=== PATIENT | male | born 1945 | race Caucasian/White ===

== ENCOUNTER 2018-11-13 10:50 | Emergency (ER) | payer OTHER ==
--- NOTE | 2018-11-13 11:38 | EDPHY ---
HPI/HX/ROS/PE/MDM Narrative: CHIEF COMPLAINT: Nosebleed HPI: The patient is a 73-year-old male with a history of frequent nose bleeds, Coumadin use secondary to artificial heart valve and atrial fibrillation. The patient states that his INR was checked on Thursday and was found to be mildly elevated at 3.0. He has been dealing with a nose bleed on off for the last week. He was seen last at the emergency department at [place] yesterday morning in his right nostril was packed with gauze. He reports continued mild dripping from his right nostril as well as into the back of his throat despite this packing. He denies severe pain or fever. REVIEW OF SYSTEMS: Aside from elements discussed in the HPI, a comprehensive 10-point review of systems was reviewed and is negative. PMH: Includes artificial heart valve, atrial fibrillation, anticoagulant use. SOCIAL HISTORY: Lives in [place]. Denies alcohol or drug abuse. PHYSICAL EXAM: General:Patient is alert, in no acute distress. ENT: The right nostril is packed with large amount of gauze. There is no active bleeding from his nose or in his mouth. Neck: Normal inspection. Full range of motion. Respiratory:No respiratory distress. Breath sounds normal bilaterally. Cardiovascular: Regular rate and rhythm. Strong peripheral pulses. Normal cap refill. Abdomen:The abdomen is nontender to palpation. There are no peritoneal signs. There are normal bowel sounds. Back: Normal to inspection. No tenderness to palpation. Skin: Normal color. No rash. Warm and dry. Extremities: Normal appearance. Full range of motion. Neuro: Oriented x3. Normal motor function. Normal sensory function. ED Course: I removed the packed gauze in the right nostril with manual pressure. The patient blew his nose afterwards and there is apparently no active bleeding at this time. Patient was observed in the emergency department for approximately 1 hr with no recurrence of epistaxis. His INR remains 3.0. I had an extensive discussion with him regarding options for care including placing a rhino rocket now verses discharging home without further intervention. The patient has chosen the latter option. He is aware that epistaxis recurrence is certainly a possibility. I see no area that would benefit from cauterization at this time. - Data Points Laboratory Results: 11/13/18 12:05 PT 29.6 SEC H SEC (12.0-15.0) INR 3.00 H (0.83-1.16) APTT 33.5 SEC SEC (23.0-38.0) General Time Seen by Provider: 11/13/18 11:29 Initial Vital Signs: Initial Vital Signs Temperature (C) 36.6 C 11/13/18 10:56 Heart Rate 114 H 11/13/18 10:56 Respiratory Rate 18 11/13/18 10:56 Blood Pressure 158/90 H 11/13/18 10:56 O2 Sat (%) 86 L 11/13/18 10:56 O2 Delivery Mode Room Air Allergies/Adverse Reactions: Sulfa (Sulfonamide Antibiotics) Allergy (Verified 11/13/18 10:55) Home Medications: Medication Instructions Recorded Amlodipine Besylate 11/13/18 Aspirin 81mg (*) 11/13/18 Coumadin 11/13/18 Lasix 11/13/18 Metformin HCl 11/13/18 Potassium Chloride Po 11/13/18 Departure - Departure Disposition: Home, Routine, Self-Care Clinical Impression: Epistaxis, recurrent Condition: Good Instructions: Nosebleed (ED) Additional Instructions: Follow-up with your ENT specialist within the next week as scheduled. If nosebleed recurs, go to your nearest ER. Referrals: ROBERT CONTEH MD [Other] - As per Instructions
[2018-11-13 12:31] LABS: PROTIME(PATIENT) 29.6 SEC (12.0-15.0)
[2018-11-13 13:08] VITALS: BP 142/79
== END 2018-11-13 13:07 | disposition home or self-care (01) ==
DX: R04.0 Epistaxis (principal); I48.91 Unspecified atrial fibrillation; Z79.01 Long term (current) use of anticoagulants; Z95.2 Presence of prosthetic heart valve